=== PATIENT | male | born 1940 | race Caucasian/White ===

== ENCOUNTER → 2017-11-20 | Day surgery (SDC) | payer MEDICARE, OTHER ==
[~2017-11-20] MED LIST: Lactated Ringers 1,000 ML IV SCH; Propofol 200 MG/20 ML SDV IV ONE
--- NOTE | 2017-11-20 14:08 | OR ---
DATE OF OPERATION: 11/20/2017 PREOPERATIVE DIAGNOSIS: FOLLOWUP POLYPS. POSTOPERATIVE DIAGNOSIS: FOLLOWUP POLYPS. SURGEON: Kailash Plummer MD PROCEDURE: FULL-LENGTH COLONOSCOPY WITH FORCEPS POLYP REMOVAL X1. 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 COMPLICATIONS: None. SPECIMEN: 1. Large villous adenoma, hepatic flexure. 2. Hyperplastic polyp rectal vault. 3. Mild sigmoid diverticulosis. RECOMMENDATIONS: Follow up colonoscopy in 3 years. INDICATIONS: Patient has a prior history of polyp removals, I believe he is due for a followup colonoscopy it has been over 5 years. DESCRIPTION OF PROCEDURE: The patient was prepped and draped, placed in the left lateral decubitus position. A lubricated Olympus colonoscope was inserted and easily advanced to the cecum. Direct visualization of the ileocecal valve and appendiceal orifice was accomplished. Bowel prep was adequate. Upon withdrawal of the scope, the cecum and ascending colon appeared benign. Right at the hepatic flexure, the patient had a larger flat villous adenoma greater than 1 cm in size. We were able to remove it with snare in two sections without any complications, suction into polyp trap #1. The rest of the transverse and descending colon were unremarkable. Throughout the sigmoid colon, I found no signs of any polyps, masses, ulcerations, or bleeding sites. No vascular abnormalities or signs of colitis. The patient did have mild diverticular disease. The rectal vault had 1 small flat hyperplastic polyp removed with a forceps biopsy. Retroflexion of scope showed no perianal lesions, air was suctioned, and scope was removed without complication. HOLLEY/JOSEF /[id number]
== END ==
LOC: CC.SDS 07:43
PROVIDERS: ATTEND Family Medicine
DX: Z12.11 Encounter for screening for malignant neoplasm of colon (principal); D12.3 Benign neoplasm of transverse colon; K57.30 Diverticulosis of large intestine without perforation or abscess without bleeding; K62.1 Rectal polyp; I71.4 Abdominal aortic aneurysm, without rupture; L57.0 Actinic keratosis; I48.0 Paroxysmal atrial fibrillation; M19.90 Unspecified osteoarthritis, unspecified site; I25.10 Atherosclerotic heart disease of native coronary artery without angina pectoris; N52.9 Male erectile dysfunction, unspecified; R53.83 Other fatigue; E78.5 Hyperlipidemia, unspecified; E03.9 Hypothyroidism, unspecified; N40.1 Benign prostatic hyperplasia with lower urinary tract symptoms; R35.1 Nocturia; E55.9 Vitamin D deficiency, unspecified; Z79.82 Long term (current) use of aspirin; Z86.010 Personal history of colon polyps; Z79.899 Other long term (current) drug therapy; Z95.1 Presence of aortocoronary bypass graft; Z87.891 Personal history of nicotine dependence
CPT/HCPCS: 45380; 45385; J2704; J7120; 00812; 88305

== ENCOUNTER → 2020-12-14 | Day surgery (SDC) | payer MEDICARE, OTHER ==
[~2020-12-14] MED LIST changes: +Ketamine 200 MG/20 ML MDV ONE; +Phenylephrine 1% 10 MG/ML SDV ONE; -Propofol 200 MG/20 ML SDV IV ONE; +Propofol 200 MG/20 ML SDV ONE; +fentaNYL 100 MCG/2 ML SDV ONE
--- NOTE | 2020-12-14 13:20 | OR ---
DATE OF OPERATION: 12/14/2020 PREOPERATIVE DIAGNOSIS: FOLLOWUP POLYPS. POSTOPERATIVE DIAGNOSIS: FOLLOWUP POLYPS. SURGEON: Kailash Plummer MD PROCEDURE: FULL-LENGTH COLONOSCOPY WITH FORCEPS POLYP REMOVAL X4. ANESTHESIA: MAC. COMPLICATIONS: None. SPECIMEN: Four small hyperplastic polyps, see report. FINDINGS: 1. Full-length diagnostic colonoscopy. 2. No polyp recurrence of hepatic flexure. 3. Four small hyperplastic polyps, all 2 to 3 mm. 4. Mild sigmoid diverticulosis. RECOMMENDATIONS: Followup colonoscopy on an as-needed basis at this point given his age and of course pending path report. INDICATIONS: Mr. Barney is an 80-year-old who 3 years ago had a large villous lesion removed from the hepatic flexure. We elected to have a surveillance scope. DESCRIPTION OF PROCEDURE: The patient was prepped and draped, placed in the left lateral decubitus position. A lubricated Olympus colonoscope was inserted and with relative ease advanced to the cecum. Direct visualization of the ileocecal valve and appendiceal orifice was accomplished. The bowel prep was adequate. Upon withdrawal of the scope, the cecum was benign. In the proximal- to-mid ascending colon, the patient had a very small 2 mm hyperplastic polyp removed in its entirety with forceps. Thus, hepatic flexure area looked completely unremarkable and no signs of any polyp recurrence was seen. The rest of the transverse and descending colons were benign. The patient does have some scattered diverticula in the sigmoid area, but very mild. In the distal sigmoid, rectosigmoid, and rectal vault, the patient had 3 small hyperplastic polyps, all about 2 to 3 mm and all removed with a forceps without complication. Retroflexion of the scope in the rectal vault was benign. Air was suctioned and the scope removed without complication. HOLLEY/JOSEF /[id number]
== END ==
LOC: CC.SDS 09:25
PROVIDERS: ATTEND Family Medicine
DX: Z12.11 Encounter for screening for malignant neoplasm of colon (principal); D12.2 Benign neoplasm of ascending colon; D12.5 Benign neoplasm of sigmoid colon; K62.1 Rectal polyp; K57.30 Diverticulosis of large intestine without perforation or abscess without bleeding; I48.0 Paroxysmal atrial fibrillation; N40.1 Benign prostatic hyperplasia with lower urinary tract symptoms; I25.10 Atherosclerotic heart disease of native coronary artery without angina pectoris; E78.00 Pure hypercholesterolemia, unspecified; Z01.812 Encounter for preprocedural laboratory examination; Z20.822 Contact with and (suspected) exposure to COVID-19; E03.9 Hypothyroidism, unspecified; Z79.82 Long term (current) use of aspirin; Z79.899 Other long term (current) drug therapy; Z87.891 Personal history of nicotine dependence; Z79.890 Hormone replacement therapy
CPT/HCPCS: 00812; 45380; 88305; J2370; J2704; J3010; J7120

== ENCOUNTER 2022-12-22 12:32 | Emergency (ER) | payer MEDICARE, OTHER ==
[2022-12-22] MEDS ORDERED: Aspirin 81 MG Tab.Chew PO ONE (13:17)
[2022-12-22 13:30] LABS: CORONAVIRUS COVID-19 NAA NEGATIVE (NEGATIVE); RESPIRATORY SYNCYTIAL VIR NAA NEGATIVE (NEGATIVE)
[2022-12-22] MEDS ORDERED: Heparin Sodium 5,000 Units/ML Vial IVPUSH ONE (13:38)
[2022-12-22] MEDS ORDERED: Heparin Sodium/0.45% NaCl 500 ML IV SCH (13:45)
== END 2022-12-22 15:10 ==
LOC: SUPCPDRO 12:32 → CC.ED 12:32
DX: I21.4 Non-ST elevation (NSTEMI) myocardial infarction (principal); Z79.82 Long term (current) use of aspirin; Z79.899 Other long term (current) drug therapy; Z20.822 Contact with and (suspected) exposure to COVID-19
CPT/HCPCS: 0241U; 36415; 71045; 80053; 83690; 83735; 84484; 85025; 85610; 85730; 93005; 93010; 96365; 96376; 99284; 99285-25; A9270-GY; J1644

== ENCOUNTER 2023-11-16 08:00 | Emergency (ER) | payer MEDICARE, OTHER ==
[2023-11-16] MEDS ORDERED: Sodium Chloride 0.9% 1,000 ML IV SCH (08:15)
[2023-11-16 08:37] LABS: BASOPHILS ABSOLUTE AUTO 0.03 10^3/uL (0.00-0.50); BASOPHILS PERCENT AUTO 0.3 % (0-1); EOSINOPHILS ABSOLUTE AUTO 0.05 10^3/uL (0.00-1.50); EOSINOPHILS PERCENT AUTO 0.4 % (0-6); HEMATOCRIT 44.4 % (42.0-52.0); HEMOGLOBIN 14.7 g/dL (14.0-18.0); IMMATURE GRAN ABSOLUTE AUTO 0.08 10^3/uL (0.00-0.49); IMMATURE GRAN PERCENT AUTO 0.7 % (0.0-4.9); LYMPHOCYTES ABSOLUTE AUTO 0.95 10^3/uL (0.60-5.00); MEAN CORPUSCULAR HGB CONC 33.1 g/dL (32.0-36.0); MEAN CORPUSCULAR VOLUME 96.7 fL (83.0-97.0); MONOCYTES ABSOLUTE AUTO 1.09 10^3/uL (0.00-1.50); MONOCYTES PERCENT AUTO 9.1 % (0-10); NEUTROPHILS ABSOLUTE AUTO 9.73 x10^3/uL (1.80-8.00); NEUTROPHILS PERCENT AUTO 81.5 % (41-71); PLATELET COUNT,PLT 245 10^3/uL (150-400); RED BLOOD CELL COUNT 4.59 x10^6/uL (4.50-6.00); WHITE BLOOD CELL COUNT,WBC 11.9 10^3/uL (4.0-11.0)
[2023-11-16 08:40] LABS: APPEARANCE,URINE CLEAR (CLEAR); BILIRUBIN,URINE NEGATIVE (NEGATIVE); COLOR,URINE YELLOW (YELLOW); GLUCOSE,URINE NEGATIVE (NEGATIVE); KETONES,URINE NEGATIVE (NEGATIVE); LEUKOCYTE ESTERASE,URINE NEGATIVE (NEGATIVE); NITRITE,URINE NEGATIVE (NEGATIVE); OCCULT BLOOD,URINE TRACE-INTACT (NEGATIVE); PROTEIN,URINE NEGATIVE (NEGATIVE); UROBILINOGEN,URINE 0.2 EU/dL (0.2-1.0)
[2023-11-16 08:51] LABS: ALBUMIN 3.1 g/dL (3.4-5.0); BILIRUBIN TOTAL 1.2 mg/dL (0.0-1.0); CALCIUM 9.2 mg/dL (8.4-10.1); EST CRCL DRUG DOSING (CG) 54.99 mL/min; POTASSIUM,K 4.4 mEq/L (3.5-5.0); PROTEIN TOTAL,TP 8.2 g/dL (6.4-8.2)
[2023-11-16 08:54] LABS: EPITHELIAL CELLS,URINE FEW /HPF (NOT SEEN); RBC,URINE 0-5 /HPF (0-5)
[2023-11-16 08:55] LABS: BACTERIA,URINE FEW /HPF (NOT SEEN); MUCUS,URINE MANY /HPF (NOT SEEN)
[2023-11-16 09:13] LABS: CORONAVIRUS COVID-19 NAA NEGATIVE (NEGATIVE); INFLUENZA A NAA NEGATIVE (NEGATIVE); INFLUENZA B NAA NEGATIVE (NEGATIVE)
== END 2023-11-16 11:15 | disposition home or self-care (01) ==
LOC: CC.ED 08:00
DX: J06.9 Acute upper respiratory infection, unspecified (principal); G93.31 Postviral fatigue syndrome; E78.00 Pure hypercholesterolemia, unspecified; E03.9 Hypothyroidism, unspecified; F17.210 Nicotine dependence, cigarettes, uncomplicated; Z79.82 Long term (current) use of aspirin; Z79.899 Other long term (current) drug therapy; Z20.822 Contact with and (suspected) exposure to COVID-19
CPT/HCPCS: 0240U; 36415; 71046; 80053; 81001; 85025; 96360; 99284; 99285-25; J7030